=== PATIENT | male | born 1980 | race Caucasian/White ===

== ENCOUNTER 2017-05-08 12:32 | Emergency (ER) | payer BC ==
[~2017-05-08 12:32] MED LIST: PRED20 PO; Z.0.NO CURRENT MEDS; ZYRT10TA12 PO
== END 2017-05-08 13:13 | disposition left against medical advice (07) ==
LOC: NED 12:32
DX: S39.92XA Unspecified injury of lower back, initial encounter (principal); X58.XXXA Exposure to other specified factors, initial encounter
CPT/HCPCS: 99281